=== PATIENT | male | born 1955 | race Hispanic/Latino ===

== ENCOUNTER 2016-12-21 11:53 | Emergency (ER) | payer BC ==
[2016-12-21 11:53] VITALS: BMI 37.3
[2016-12-21] MEDS ORDERED: Etomidate 20 mg/10ml Inj IV ONE (12:20)
[2016-12-21] MEDS ORDERED: Succinylcholine 200 mg/10 ml Inj IV ONE (12:20)
--- NOTE | 2016-12-21 12:20 | CT ---
PROCEDURE: CT HEAD WITHOUT CONTRAST. HISTORY: Code Stroke COMPARISON: 03/09/2016 TECHNIQUE: Axial computed tomography images were obtained through the head/brain without intravenous contrast. Radiation dose: Total exam DLP = 848 mGy-cm. This CT exam was performed using one or more of the following dose reduction techniques: Automated exposure control, adjustment of the mA and/or kV according to patient size, and/or use of iterative reconstruction technique. FINDINGS: HEMORRHAGE: No current intracranial hemorrhage. A prior right superior -posterior frontal/parietal parenchymal hematoma now suggests encephalomalacia. BRAIN: No mass effect or edema. VENTRICLES: Unremarkable. No hydrocephalus. CALVARIUM: Unremarkable. PARANASAL SINUSES: The thick inflammatory changes lining the left maxillary sinus are renoted. MASTOID AIR CELLS: Unremarkable as visualized. No inflammatory changes. OTHER FINDINGS: None. IMPRESSION: No interval hemorrhage or mass effect. The prior right intra cerebral parenchymal hematoma has undergone interval encephalomalacia. Maxillary sinus chronic inflammatory changes -similar
[2016-12-21] MEDS ORDERED: Midazolam 2 MG/2 ML VIAL IVP STA ×2 (12:22→14:49)
[2016-12-21] MEDS ORDERED: Midazolam 5 MG/5 ML VIAL ONE (12:24)
[2016-12-21 12:26] LABS: BASO # 0.02 K/mm3 (0.0-2.0); BASO % 0.2 % (0.0-3.0); EOS # 0.2 (0.0-0.7); EOS % 1.7 % (1.5-5.0); GRAN # 4.79 (1.4-6.5); GRAN % 54.2 % (50.0-68.0); HEMOGLOBIN 14.8 gm/dL (14.0-18.0); LYMPH % 33.9 % (22.0-35.0); MEAN CELL VOLUME 87.6 fL (80.0-105.0); MEAN CORPUSCULAR HEMOGLOBIN 28.7 pg (25.0-35.0); MEAN CORPUSCULAR HGB CONC 32.8 g/dl (31.0-37.0); MEAN PLATELET VOLUME 10.2 fl (7.0-11.0); MONO # 0.9 (0.1-0.6); PLATELET COUNT 272 10^3/uL (120.0-450.0); RBC 5.15 10^6/uL (3.5-6.1); RED CELL DISTRIBUTION WIDTH 14.7 % (11.5-14.5); WHITE BLOOD COUNT 8.8 10^3/ul (4.5-11.0)
[2016-12-21] MEDS ORDERED: Rocuronium 10 mg/ml (5 ml) IVP ONE (12:32)
[2016-12-21 12:33] LABS: ALB/GLOB RATIO 1.5 (1.1-1.8); ALBUMIN 4.7 g/dL (3.0-4.8); ALT/SGPT 30 U/L (7-56); AST/SGOT 24 U/L (15-59); BLOOD UREA NITROGEN 17 mg/dL (7-21); CALCIUM 9.5 mg/dL (8.4-10.5); GFR AFRICAN-AMERICAN > 60; GFR NON-AFRICAN AMERICAN > 60; HDL CHOLESTEROL 83 mg/dL (29-60); LIPASE 95 U/L (23-300)
[2016-12-21] MEDS ORDERED: Rocuronium 10 mg/ml (5 ml) ONE (12:33)
[2016-12-21] MEDS ORDERED: Midazolam 5 MG/5 ML VIAL IVP STA (12:37)
[2016-12-21] MEDS ORDERED: levETIRAcetam 1,000 MG in Sodium Chloride 0.9% 100 ML IV STA (12:37)
[2016-12-21 12:40] LABS: INR 2.88 (0.93-1.08); PARTIAL THROMBOPLASTIN TIME 46.6 Seconds (23.7-30.8); PROTHROMBIN TIME 31.1 Seconds (9.9-11.8)
[2016-12-21 12:44] LABS: LDL CHOLESTEROL 138 mg/dL (0-129); TROPONIN I < 0.01 ng/mL
--- NOTE | 2016-12-21 13:14 | CP.PCM.CON ---
<Brook Stubbs - Last Filed: 12/21/16 13:55> History of Present Illness - History of Present Illness History of Present Illness: PGY-2 Neurology consult note for Dr Dinh. Reason for consult: seizures Patient is a 60 y/o with h/o cerebral hemorrhage (03/09/16) presenting with seizures. Patient is currently intubated and sedated thus history was obtained from ED physician, Dr Guzmán. Patient was verbal on arrival to the ED. Reported he had left arm and left leg weakness about 1/2 hr prior to arrival. In the ED patient's left arm started to twitch, patient was giving an initial of 2 mg ativan. While getting CT head patient had a full blowned tonic clonic seizure, was giving another 2 mg ativan with no improvement, then versed, then another ativan. Patient had to be intubated for status and airway protection. Unable to obtain ROS due to mental status. PMH: DETAIL UNKNOWN PSH: KNOWN Social: unknown home meds: unknown. Review of Systems - Review of Systems Systems not reviewed;Unavailable: Intubated Past Patient History - Infectious Disease Hx of Infectious Diseases: None - Past Social History Smoking Status: Never Smoked - NEUROLOGICAL HX Cerebrovascular Accident: Yes - PSYCHIATRIC Hx Substance Use: No - SURGICAL HISTORY Hx Herniorrhaphy: Yes Meds Allergies/Adverse Reactions: Allergies Allergy/AdvReac Type Severity Reaction Status Date / Time No Known Allergies Allergy Verified 03/09/16 07:40 Physical Exam - Constitutional Appears: No Acute Distress, Other (intubated and sedated. ) - Head Exam Head Exam: ATRAUMATIC, NORMAL INSPECTION, NORMOCEPHALIC - Eye Exam Eye Exam: absent: Conjunctival injection Pupil Exam: Fixed Additional comments: Equal and reactive to light. - ENT Exam ENT Exam: Mucous Membranes Moist - Neck Exam Neck exam: Positive for: Normal Inspection - Respiratory Exam Respiratory Exam: Clear to Auscultation Bilateral, NORMAL BREATHING PATTERN. absent: Rales, Rhonchi, Wheezes, Respiratory Distress, Stridor - Cardiovascular Exam Cardiovascular Exam: Tachycardia, REGULAR RHYTHM, +S1, +S2 - GI/Abdominal Exam GI & Abdominal Exam: Normal Bowel Sounds, Soft. absent: Tenderness (obese abdomen. ) - Extremities Exam Extremities exam: Positive for: normal inspection - Neurological Exam Additional comments: Patient is intubated and sedated. Pupils reactive to light. RASS-5. Unable to assess cranial nerves, sensory, motor and coordination - Skin Skin Exam: Dry Results - Vital Signs Recent Vital Signs: Last Vital Signs Temp 98.6 F 12/21/16 11:58 Pulse 118 H 12/21/16 12:25 Resp 22 12/21/16 12:25 BP 157/87 H 12/21/16 12:25 Pulse Ox 100 12/21/16 12:25 - Labs Result Diagrams: 12/21/16 11:50 12/21/16 11:50 - Imaging and Cardiology CT scan - head Status: Report reviewed by me Additional comment: IMPRESSION: No interval hemorrhage or mass effect. The prior right intra cerebral parenchymal hematoma has undergone interval encephalomalacia. Maxillary sinus chronic inflammatory changes -similar Assessment & Plan - Assessment and Plan (Free Text) Assessment: Patient is a 60 y/o with h/o brain hemorrhage presenting with left lower and upper extremities weakness, developed status epilepticus. 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 Plan: - Start keppra 500 mg q12 iv - Seizure precaution - obtain EEG - Obtain med list - Will follow Patient seen, examined, discussed with Dr Dinh. - Date & Time Date: 12/21/16 Time: 13:00 <Sukhwinder Dinh - Last Filed: 12/21/16 15:15> Meds - Medications Medications: Current Medications Levetiracetam (Keppra 500mg Ivpb) 500 mg in 100 mls @ 460 mls/hr IVPB Q12 MAKSIM Midazolam 100 mg/100ml in NS (Midazolam 100 Mg/100ml In Ns) 100 mg in 100 mls @ 1 mls/hr IV .Q24H PRN; Protocol; 1 MG/HR PRN Reason: Agitation Last Admin: 12/21/16 14:27 Dose: 1 mg/hr, 1 mls/hr Results - Vital Signs Recent Vital Signs: Last Vital Signs Temp 98.6 F 12/21/16 11:58 Pulse 92 H 12/21/16 14:00 Resp 18 12/21/16 14:00 BP 138/99 H 12/21/16 14:00 Pulse Ox 100 12/21/16 14:00 - Labs Result Diagrams: 12/21/16 11:50 12/21/16 11:50 Labs: Laboratory Results - last 24 hr 12/21/16 12/21/16 14:05 14:07 pCO2 44 pO2 94.0 HCO3 25.4 ABG pH 7.37 ABG Total CO2 26.8 ABG O2 Saturation 98.8 H ABG O2 Content 18.7 ABG Base Excess -0.2 ABG Hemoglobin 13.8 ABG Carboxyhemoglobin 1.6 H POC ABG HHb (Measured) 1.2 ABG Methemoglobin 1.1 ABG O2 Capacity 18.9 Hgb O2 Saturation 96.0 FiO2 50.0 Blood Type AB POSITIVE Antibody Screen Negative BBK History Checked Patient has bt Attending/Attestation - Attestation I have personally seen and examined this patient.: Yes I have fully participated in the care of the patient.: Yes I have reviewed all pertinent clinical information: Yes Notes (Text): 12/21/16 15:11 PATIENT CAME IN WITH STATUS EPILEPTICUSS/P [id number] VERSED AND KEPPRA LOAD. IF CONTINUES BE IN STATUS WOULD CONSIDER TRANSFER TO [facility] FOR CONTINUOUS EEG MONITORING TO MANAGE STATUS WITHOUT BLINDING GIVING MEDICATIONS. C/W KEPPRA IV Q12 MRI BRAIN. THANKS LIZZIE MENDES. 12/21/16 15:13
--- NOTE | 2016-12-21 13:14 | ED PDOC ---
Arrival/HPI - General Chief Complaint: Weakness/Neurological Deficit Time Seen by Provider: 12/21/16 11:55 Historian: Patient EM Caveat: Acuity of Condition - History of Present Illness Narrative History of Present Illness (Text): 12/21/16 11:55 A 60 year old male, whose past medical history includes intraparenchymal bleed on 03/09/16, who comes to the emergency department complaining of left sided weakness. Patient reports about 30 minutes prior to arrival he started to experience weakness to the left arm and left leg along with twitching and shaking. Despite the twitching the patient was able to drive himself to the emergency department for evaluation. He denied any headache, vision changes or slurred speech. While taking HPI the patient began to have an active seizure and therefore HPI and ROS is limited. PMD: Dr. Abad Past Medical History - Provider Review Nursing Documentation Reviewed: Yes - Infectious Disease Hx of Infectious Diseases: None - Neurological HX Cerebrovascular Accident: Yes - Psychiatric Hx Substance Use: No Family/Social History - Physician Review Nursing Documentation Reviewed: Yes Family/Social History: Unknown Family HX Smoking Status: Never Smoked Hx Alcohol Use: Yes Hx Substance Use: No Allergies/Home Meds Allergies/Adverse Reactions: Allergies No Known Allergies Allergy (Verified 03/09/16 07:40) Home Medications: Home Meds Medication Instructions Recorded Confirmed No Known Home Med 03/09/16 03/09/16 Review of Systems - Physician Review All systems were reviewed & negative as marked: Yes (limits ROS reliability) - Review of Systems Systems not reviewed;Unavailable: Acuity of Condition Eyes: absent: Vision Changes Respiratory: absent: SOB, Cough Cardiovascular: absent: Chest Pain Gastrointestinal: absent: Abdominal Pain, Nausea, Vomiting Genitourinary Male: Normal Musculoskeletal: Normal Neurological: Seizure, Other (left upper and lower extremity weakness with twtiching/shaking). absent: Headache, Speech Changes Physical Exam Vital Signs Reviewed: Yes Vital Signs Temp Pulse Resp BP Pulse Ox 12/21/16 17:50 100.1 F H 86 18 148/88 98 12/21/16 16:00 90 16 138/86 98 12/21/16 15:15 86 18 150/73 100 12/21/16 14:30 82 16 148/76 100 12/21/16 14:00 92 H 18 138/99 H 100 12/21/16 13:30 88 16 149/92 H 98 12/21/16 13:00 90 14 148/101 H 98 12/21/16 12:45 90 16 155/92 H 98 12/21/16 12:25 118 H 22 157/87 H 100 12/21/16 11:58 98.6 F 100 H 20 199/113 H 97 Temperature: Afebrile Blood Pressure: Hypotensive Pulse: Tachycardic Respiratory Rate: Normal Appearance: Positive for: Non-Toxic Pain Distress: None - Systems Exam Head: Present: Atraumatic, Normocephalic Pupils: Present: PERRL Extroacular Muscles: Present: EOMI Conjunctiva: Present: Normal Mouth: Present: Moist Mucous Membranes Pharnyx: Present: Normal. No: ERYTHEMA, EXUDATE Neck: Present: Normal Range of Motion Respiratory/Chest: Present: Clear to Auscultation, Good Air Exchange. No: Respiratory Distress, Accessory Muscle Use Cardiovascular: Present: Normal S1, S2, Tachycardic. No: Murmurs Abdomen: Present: Normal Bowel Sounds. No: Tenderness, Distention, Peritoneal Signs Upper Extremity: No: Cyanosis, Edema Lower Extremity: No: Edema Neurological: Present: Other (good strength of the left arm but there is dysmetria). No: Normal Cerebellar Funct Skin: Present: Warm, Dry, Normal Color. No: Rashes Psychiatric: Present: Alert Medical Decision Making ED Course and Treatment: 12/21/16 11:55 Impression: A 60 year old male with left sided weakness. On arrival the patient had some left arm shaking (initial), which spontaneously resolved for 1 minute and than began again. Patient was given 2mg of Ativan with a brief moment of resolution. Soon after patient began to have a general tonic clonic seizure so 2 more mg of Ativan was given. Seizure again resolved briefly so that CT was obtained. But very soon after, it recurred, and patient was given 5mg Versed and he was intubated to protect airway for status epilepticus. Total seizing time was close to 25-30 minutes from the time of presentation. Differential Diagnosis included but are not limited to: intracranial hemorrhage vs. cva vs. epilepsy Plan: -- EKG -- Head CT -- Chest X-ray -- Labs -- Urinalysis -- Reassess and disposition Prior Visits: Notes and results from previous visits were reviewed. The patient last presented to the emergency department on 03/09/16 for evaluation of generalized weakness and chills. Patient had a Head CT during his visit, which showed a 3 x 1.5 centimeter focus of acute intraparenchymal hemorrhage seen at the right superior frontal lobe. Adjacent small foci of acute hemorrhage also seen at the right frontal lobe. Mild surrounding edema. No evidence of significant mass effect or midline shift. No CT evidence of acute territorial infarct. Mild atrophy and chronic microvascular white matter ischemic disease. Progress Notes: Code Stroke called. 12/21/16 12:[address] Wilman Dinh (Neurologist), who states to call back once the CT is done. 12/21/16 12:[address]: Creator : Kathy Olivera V. COMPARISON: 03/09/2016 FINDINGS: HEMORRHAGE: No current intracranial hemorrhage. A prior right superior - posterior frontal/parietal parenchymal hematoma now suggests encephalomalacia. BRAIN: No mass effect or edema. VENTRICLES: Unremarkable. No hydrocephalus. CALVARIUM: Unremarkable. PARANASAL SINUSES: The thick inflammatory changes lining the left maxillary sinus are renoted. MASTOID AIR CELLS: Unremarkable as visualized. No inflammatory changes. OTHER FINDINGS: None. IMPRESSION: No interval hemorrhage or mass effect. The prior right intra cerebral parenchymal hematoma has undergone interval encephalomalacia. Maxillary sinus chronic inflammatory changes -similar. 12/21/16 12:31 Dr. Dinh (Neurologist) and Dr. Carlos Ogden ([facility]) paged. 12/21/16 12:[address] Dinh, who states he will consult. He states patient is not a tPA candidate because of his history of bleed and Coumadin use. Patient INR at this time is 2.88. NIHSS is only 3 12/21/16 12:[address] Ogden, who recommends possible transfer for EEG monitoring. 12/21/16 12:36 [facility] called. They states they will call back in some time. 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 Through transfer line, neurology called but no call back. Multiple calls placed for [facility] without response. In the meantime, Dr. Ogden recommended EEG in the ED. 12/21/16 13:15 Chest X-ray: Creator : Silver Rodriguez MD COMPARISON: 03/09/2016 FINDINGS: LUNGS: Patchy infiltrate at the right lung base. The endotracheal tube is at the level of the clavicles PLEURA: No significant pleural effusion identified, no pneumothorax apparent. CARDIOVASCULAR: Moderate cardiomegaly OSSEOUS STRUCTURES: No significant abnormalities. VISUALIZED UPPER ABDOMEN: Normal. OTHER FINDINGS: None. IMPRESSION: Endotracheal tube in satisfactory position 12/21/16 17:50 EEG that was obtained in the ED did show seizure activity; rediscussed with Dr. Dinh, who recommended fosphenytoin administration and transfer for continuous EEG monitoring. Still no callback from [facility]. 12/21/16 18:10 Eventually we were able to discuss the case with neuro at [facility]; spoke with Dr. Moraes, who accepted the patient for transfer to [facility] ICU for continuous EEG monitoring. 12/21/16 18:40 Patient's brother Jaime phone consented for transfer. - Critical Care Critical Care Minutes: Other (180 minutes) - Lab Interpretations Lab Results: 12/21/16 11:50 12/21/16 11:50 Lab Results 12/21/16 11:50: Hemoglobin A1c 6.2 12/21/16 11:50: Sodium 141, Potassium 4.2, Chloride 102, Carbon Dioxide 25, Anion Gap 18, BUN 17, Creatinine 0.9, Est GFR ( Amer) > 60, Est GFR (Non- Af Amer) > 60, Random Glucose 101, Calcium 9.5, Total Bilirubin 0.5, AST 24, ALT 30, Alkaline Phosphatase 61, Lactate Dehydrogenase 515, Total Creatine Kinase 138, Troponin I < 0.01, Total Protein 7.7, Albumin 4.7, Globulin 3.1, Albumin/Globulin Ratio 1.5, Triglycerides 158, Cholesterol 231 H, LDL Cholesterol Direct 138 H, HDL Cholesterol 83 H, Lipase 95 12/21/16 11:50: PT 31.1 H*, INR 2.88 H, APTT 46.6 H 12/21/16 11:50: WBC 8.8, RBC 5.15, Hgb 14.8, Hct 45.1, MCV 87.6, MCH 28.7, MCHC 32.8, RDW 14.7 H, Plt Count 272, MPV 10.2, Gran % 54.2, Lymph % (Auto) 33.9, [place] % (Auto) 10.0 H, Eos % (Auto) 1.7, Baso % (Auto) 0.2, Gran # 4.79, Lymph # 3.0, [place] # 0.9 H, Eos # 0.2, Baso # 0.02 I have reviewed the lab results: Yes - RAD Interpretation Radiology Orders: 12/21/16 11:57 HEAD W/O (CODE STROKE) [CT] Stat CHEST PORTABLE [RAD] Stat - Medication Orders Current Medication Orders: Levetiracetam (Keppra 500mg Ivpb) 500 mg in 100 mls @ 460 mls/hr IVPB Q12 MAKSIM Midazolam 100 mg/100ml in NS (Midazolam 100 Mg/100ml In Ns) 100 mg in 100 mls @ 1 mls/hr IV .Q24H PRN; Protocol; 1 MG/HR PRN Reason: Agitation Last Admin: 12/21/16 14:27 Dose: 1 mg/hr, 1 mls/hr Discontinued Medications Acetaminophen (Tylenol 650 Mg Supp) 650 mg RC STAT STA Stop: 12/21/16 17:51 Last Admin: 12/21/16 17:55 Dose: 650 mg Etomidate (Amidate) Confirm Administered Dose 20 mg IV .STK-MED ONE Stop: 12/21/16 12:21 Last Admin: 12/21/16 12:27 Dose: 20 mg Levetiracetam 1,000 mg/ Sodium (Chloride) 110 mls @ 440 mls/hr IV ONCE STA Stop: 12/21/16 12:51 Last Admin: 12/21/16 13:02 Dose: 440 mls/hr Fosaprepitant 150 mg/ Sodium (Chloride) 150 mls @ 290 mls/hr IVPB ONCE ONE Stop: 12/21/16 17:52 Last Admin: 12/21/16 18:51 Dose: Fosphenytoin Sodium 1,000 mg/ (Sodium Chloride) 70 mls @ 100 mls/hr IV STAT STA Stop: 12/21/16 19:11 Last Admin: 12/21/16 18:40 Dose: 100 mls/hr Lorazepam (Ativan) 1 mg IVP ONCE ONE PRN Reason: Protocol Stop: 12/21/16 11:57 Last Admin: 12/21/16 12:00 Dose: Lorazepam (Ativan) Confirm Administered Dose 2 mg .ROUTE .STK-MED ONE Stop: 12/21/16 11:59 Last Admin: 12/21/16 11:59 Dose: 2 mg Lorazepam (Ativan) 2 mg IVP ONCE STA PRN Reason: Protocol Stop: 12/21/16 12:36 Last Admin: 12/21/16 12:10 Dose: 2 mg Lorazepam (Ativan) 2 mg IVP ONCE STA PRN Reason: Protocol Stop: 12/21/16 12:36 Last Admin: 12/21/16 12:42 Dose: Midazolam HCl (Versed Inj) Confirm Administered Dose 5 mg .ROUTE .STK-MED ONE Stop: 12/21/16 12:25 Last Admin: 12/21/16 12:25 Dose: 5 mg Midazolam HCl (Versed Inj) 5 mg IVP ONCE STA Stop: 12/21/16 12:38 Last Admin: 12/21/16 12:25 Dose: 5 mg Midazolam HCl (Versed Inj) 2 mg IVP STAT STA Stop: 12/21/16 14:50 Last Admin: 12/21/16 14:49 Dose: Rocuronium [place] (Zemuron) Confirm Administered Dose 50 mg .ROUTE .STK-MED ONE Stop: 12/21/16 12:34 Last Admin: 12/21/16 12:41 Dose: Rocuronium [place] (Zemuron) 50 mg IVP ONCE ONE Stop: 12/21/16 12:33 Last Admin: 12/21/16 12:41 Dose: 50 mg Succinylcholine Chloride (Quelicin) Confirm Administered Dose 200 mg IV .STK- MED ONE Stop: 12/21/16 12:21 Last Admin: 12/21/16 12:40 Dose: NIHSS Scale ([place]) Time Performed: 11:55 - How Severe is the Stoke Baseline Level of Consciousness: 0=Alert LOC to Questions: 0=Both comments correct LOC to commands: 0=Obeys both correctly Best Gaze: 0=Normal Visual: 0=No visual loss Facial: 0=Normal Motor Arm - Left: 2=Falls before 10 sec Motor Arm - Right: 0=No drift Motor Leg - Left: 0=No drift Motor Leg - Right: 0=No drift Limb Ataxia: 1=Present Upper or Lower Sensory: 0=Normal Best Language: 0=No aphasia Dysarthia: 0=Normal articulation Extinction & Inattention (Neglect): 0=Normal, no object Score: 3 Risk Level: Minor Stroke Risk rTPA Inclusion/Exclusion - Refusal of Treatment Patient Refused Treatment: No - Inclusion Criteria for Altepase Patient is 18 years or Older: Yes The Clinical Diagnosis of Ischemic Stroke That is Causing a Potentially Disabling Neurological Deficit: No Time of Onset is Well Established to be Less Than 270 Minute Before Treatment Would Begin: Yes Risk/Benefit Discussed With Patient/Family Member Present: No - Scribe Statement The provider has reviewed the documentation as recorded by the Scribe Kwaku Burns Provider Scribe Attestation: All medical record entries made by the Scribe were at my direction and personally dictated by me. I have reviewed the chart and agree that the record accurately reflects my personal performance of the history, physical exam, medical decision making, and the department course for this patient. I have also personally directed, reviewed, and agree with the discharge instructions and disposition. Disposition/Present on Arrival - Present on Arrival Any Indicators Present on Arrival: No History of DVT/PE: No History of Uncontrolled Diabetes: No Urinary Catheter: No History of Decub. Ulcer: No History Surgical Site Infection Following: None - Disposition Have Diagnosis and Disposition been Completed?: Yes Diagnosis: Seizure, Left-sided weakness Disposition: Trans to Other Acute Care Hosp Disposition Time: 18:30 Patient Plan: Transfer To ([facility]) Patient Problems: Current Active Problems Problem Status Onset Left-sided weakness Acute Seizure Acute Condition: CRITICAL
--- NOTE | 2016-12-21 14:04 | CP.PCM.CON ---
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 The patient was given 5mg of ativan and 5 mg versed in total with multiple break through seizure like events. Ultimately intubated and sent for Head CT. Currently he is seen restless in bed , intubated not sedated and able to withdraw from painful stimuli. Review of Systems - Review of Systems Systems not reviewed;Unavailable: Altered Mental Status Past Patient History - Infectious Disease Hx of Infectious Diseases: None - Past Social History Smoking Status: Never Smoked - NEUROLOGICAL HX Cerebrovascular Accident: Yes - PSYCHIATRIC Hx Substance Use: No - SURGICAL HISTORY Hx Herniorrhaphy: Yes Meds Allergies/Adverse Reactions: Allergies Allergy/AdvReac Type Severity Reaction Status Date / Time No Known Allergies Allergy Verified 03/09/16 07:40 Physical Exam - Head Exam Head Exam: ATRAUMATIC, NORMAL INSPECTION - Eye Exam Pupil Exam: Mydriatic - ENT Exam ENT Exam: Mucous Membranes Moist (ett) - Neck Exam Neck exam: Positive for: Full Rom - Respiratory Exam Respiratory Exam: Decreased Breath Sounds (L decreased breath sounds ) - Cardiovascular Exam Cardiovascular Exam: REGULAR RHYTHM - GI/Abdominal Exam GI & Abdominal Exam: Normal Bowel Sounds - Exam Exam: NORMAL INSPECTION - Extremities Exam Extremities exam: Positive for: normal inspection - Back Exam Back exam: NORMAL INSPECTION - Neurological Exam Neurological exam: Altered - Psychiatric Exam Psychiatric exam: Normal Mood - Skin Skin Exam: Normal Color Results - Vital Signs Recent Vital Signs: Last Vital Signs Temp 98.6 F 12/21/16 11:58 Pulse 118 H 12/21/16 12:25 Resp 22 12/21/16 12:25 BP 157/87 H 12/21/16 12:25 Pulse Ox 100 12/21/16 12:25 - Labs Result Diagrams: 12/21/16 11:50 12/21/16 11:50 Assessment & Plan - Assessment and Plan (Free Text) Assessment: 60 y/o M presents w/ generalized seizures , possibly status epilepticus. s/p Intubation s/p 5 mg Ativan and 5mg versed. Head ct negative for any findings\ Stat EEG pending, may need propofol drip. MRI brain needed. Previous visit was sent to [facility] for cav sinus thrombosis on anticoagulation now. [facility] called by ER. Neurology consulted. Keppra loaded, may need Dilantin as well. dvt p SCD PPi CC time 65 min
[2016-12-21 14:11] LABS: ARTERIAL BLOOD GAS HCO3 25.4 mmol/L (21-28); ARTERIAL BLOOD GAS HEMOGLOBIN 13.8 g/dL (11.7-17.4); ARTERIAL BLOOD GAS O2 CAPACITY 18.9 mL/dl (16-24); ARTERIAL BLOOD GAS O2 CONTENT 18.7 ML/dl (15-23); ARTERIAL BLOOD GAS O2 SAT 98.8 % (95-98); ARTERIAL BLOOD GAS PCO2 44 mm/Hg (35-45); ARTERIAL BLOOD GAS PH 7.37 (7.35-7.45); ARTERIAL BLOOD GAS TCO2 26.8 mmol.L (22-28)
[2016-12-21] MEDS ORDERED: Midazolam 100 mg/100ml in NS 100 MG/100 ML SOL IV PRN (14:19)
--- NOTE | 2016-12-21 16:34 | CARD ---
APPROVED REPORT EKG Measurement Heart [id number] <Conclusion> Sinus tachycardia Right bundle branch block Possible Inferior infarct, age undetermined Abnormal ECG
[2016-12-21] MEDS ORDERED: Fosphenytoin 1,000 MG in Sodium Chloride 0.9% 50 ML IV STA (18:30)
[2016-12-21 19:52] VITALS: BP 153/67; PULSE 80; RESP 14; TEMP 99.5; O2SAT 100
[2016-12-21] MEDS ORDERED: levETIRAcetam 500mg IVPB 500 MG/100 ML BAG IVPB SCH (22:00)
--- NOTE | 2016-12-22 16:06 | CP.PCM.PN ---
Subjective - Date & Time of Evaluation Date of Evaluation: 12/22/16 Time of Evaluation: 10:00 - Subjective Subjective: EEG REPORT: CONDITION OF THIS RECORDING: DROWSY DIAGNOSIS: EVALUATE FOR SEIZURE MEDICATIONS:l REVIEWED BY NURSE'S RECONCILIATION INTERPRETATION: THIS IS A 16 CHANNEL INTERNATIONAL RECORDING. THE BACKEND OF THIS TRACING WAS COMPOSED OF 6-7 CYCLES PER SECOND. THERE WAS SMALL AMOUNT OF BETA ACTIVITY OF 16-20 CPS IN THE RECORDING AND INCREASE AMOUNT OF THETA ACTIVITY OF 5-7 CPS SEEN IN THIS TRACING. DROWSINESS WAS CHARACTERIZED BY MIXED BETA AND THETA ACTIVITIES. SLEEP WAS CHARACTERIZED BY VERTEX TRANSIENT WAVE, SLEEP SPINDLES, AND B/L SLOWING. PHOTIC STIMULATION SHOWED NO CHANGE IN THE TRACING. THERE IS PAROXYSMAL ACTIVITY NOTED IN THIS RECORDING MOSTLY GENERALIZED SPIKE AND WAVE PATTERN. EMG ARTIFICAT WAS SEEN. CONCLUSION: THIS IS AN ABNORMAL EEG SHOWING DIFFUSE SLOWING THROUGHOUT THE RECORDING ALONG WITH PAROXYSMAL ACTIVITY CONSISTENT WITH SEIZURE ACTIVITY. Wilman CORRIGAN MD Objective - Vital Signs/Intake and Output Vital Signs (last 24 hours): Temp Pulse Resp BP Pulse Ox 99.5 F 80 14 153/67 H 100 12/21/16 18:55 12/21/16 18:55 12/21/16 18:55 12/21/16 18:55 12/21/16 18:55 - Labs Labs: 12/21/16 11:50 12/21/16 11:50 PT 31.1 Seconds (9.9-11.8) H* 12/21/16 11:50 INR 2.88 (0.93-1.08) H 12/21/16 11:50 APTT 46.6 Seconds (23.7-30.8) H 12/21/16 11:50
== END 2016-12-21 20:17 | disposition short-term general hospital (02) ==
LOC: ED 11:53 → UNDOADMIN 12:44 → ERH 12:44
DX: R56.9 Unspecified convulsions (principal); R53.1 Weakness; Z86.73 Personal history of transient ischemic attack (TIA), and cerebral infarction without residual deficits
CPT/HCPCS: 31500; 70450; 71010; 80053; 80061; 82550; 82803; 83036; 83615; 83690; 84484; 85025; 85610; 85730; 86850; 86900; 93005; 96365; 96367; 96375; 99291; 99292; J1953; J2060; J2250; Q2009